=== PATIENT | female | born 1970 | race African-American/Black ===

== ENCOUNTER 2022-01-31 15:22 | Emergency (ER) | payer MEDICARE, MEDICAID ==
[~2022-01-31] VITALS: Ht 162.6 cm; Wt 122.7 kg
[~2022-01-31 15:22] MED LIST: CLONAZEP ODT1 MG PO; HYDROCHLOROT25 MG PO; LOSARTAN POTASS1 POW PO; METOPROL TAR25 M1 PO; SERTRALINE100 MG PO
[2022-01-31 18:24] VITALS: BP 122/57
== END 2022-01-31 18:24 | disposition home or self-care (01) ==
LOC: ED 15:22
DX: M25.562 Pain in left knee (principal); I10 Essential (primary) hypertension; F41.9 Anxiety disorder, unspecified

== ENCOUNTER 2022-02-12 17:13 | Emergency (ER) | payer MEDICARE, MEDICAID ==
[~2022-02-12] VITALS: Ht 162.6 cm; Wt 127.0 kg
[2022-02-12 19:00] VITALS: BP 125/72
== END 2022-02-12 19:40 | disposition home or self-care (01) ==
LOC: ED 17:13
DX: M25.562 Pain in left knee (principal); E66.9 Obesity, unspecified; I10 Essential (primary) hypertension; F41.9 Anxiety disorder, unspecified

== ENCOUNTER 2022-06-11 10:00 | Emergency (ER) | payer MEDICARE, MEDICAID ==
[~2022-06-11] VITALS: Ht 165.1 cm; Wt 132.0 kg
[~2022-06-11 10:00] MED LIST changes: +VITAMIN D31000 UNI1 PO; +XANAX1 MG PO
[2022-06-11 10:12] VITALS: BP 135/73
[2022-06-11 10:46] LABS: BASO% 0.7 % (0-3); EOS% 0.6 % (0-8); HEMATOCRIT 37.8 % (37.0-47.0); HEMOGLOBIN 12.1 g/dl (12.0-16.0); IMMATURE GRANULOCYTES 0.2 % (0.0-5.0); LYMPH% 23.1 % (15-41); MEAN CELL VOLUME 88.3 fL CALC (80.0-100.0); MEAN CORPUSCULAR HGB 28.3 pG CALC (26.0-32.0); MONO% 8.1 % (2-13); NEUT# 5.96 thou/uL (2.00-7.15); NEUT% 67.3 % (42-76); RED BLOOD COUNT 4.28 mill/uL (4.20-5.60); RED CELL DISTRI WIDTH 15.9 % (11.5-15.5)
[2022-06-11 10:57] LABS: ALBUMIN 3.8 g/dL (3.2-5.0); ALKALINE PHOSPHATASE 77 u/l (38-126); ANION GAP 8 (6-22 (CALC)); BUN 18 mg/dL (7-17); BUN/CREATININE RATIO 20 (12-20 (CALC)); CARBON DIOXIDE 28 mmol/l (22-30); CHLORIDE 108 mmol/l (95-108); CREATININE 0.9 mg/dL (0.5-1.0); GFR FOR AFR.AMER. > 60 ML/MIN (>=60 (CALC)); GFR OTHER RACES > 60 ML/MIN (>=60 (CALC)); POTASSIUM 3.8 mmol/l (3.5-5.1); SGOT/AST 38 u/l (14-36); SODIUM 140 mmol/l (137-146); TOTAL PROTEIN 7.2 g/dL (6.3-8.2)
[2022-06-11 11:01] VITALS: BP 132/61
[2022-06-11 11:11] LABS: BILIRUBIN, TOTAL 0.3 mg/dL (0.02-1.3)
[2022-06-11 11:28] LABS: TSH, 3RD GENERATION 2.36 uIU/mL (0.47 - 4.68)
[2022-06-11 11:46] VITALS: BP 132/61
[2022-06-11] MEDS ORDERED: PREDNISONE5 MG PO (15:28)
[2022-06-11] MEDS ORDERED: METHOTREXATE2.5 MG PO (15:29)
== END 2022-06-11 12:00 | disposition home or self-care (01) ==
LOC: ED 10:00
PROVIDERS: Family Medicine
DX: R00.2 Palpitations (principal); I10 Essential (primary) hypertension; F41.9 Anxiety disorder, unspecified; F32.A Depression, unspecified; M45.9 Ankylosing spondylitis of unspecified sites in spine; Z01.818 Encounter for other preprocedural examination; Z11.52 Encounter for screening for COVID-19; R19.5 Other fecal abnormalities

== ENCOUNTER 2022-06-12 07:33 | Day surgery (SDC) | payer MEDICARE, MEDICAID ==
[~2022-06-12] VITALS: Ht 165.1 cm; Wt 131.5 kg
[~2022-06-12 07:33] MED LIST changes: +METHOTREXATE2.5 MG PO; +PREDNISONE5 MG PO
[2022-06-12 10:12] VITALS: BP 115/65
== END 2022-06-12 10:11 | disposition home or self-care (01) ==
LOC: ENDO 07:33 → ORM 08:00 → ENDO 08:00
PROVIDERS: ATTEND Surgery
PROC: 0DBN8ZX Excision of Sigmoid Colon, Via Natural or Artificial Opening Endoscopic, Diagnostic (ICD-10-PCS; principal; 2022-06-12)
DX: K63.5 Polyp of colon (principal); K57.30 Diverticulosis of large intestine without perforation or abscess without bleeding; G47.33 Obstructive sleep apnea (adult) (pediatric); I10 Essential (primary) hypertension; E66.01 Morbid (severe) obesity due to excess calories

== ENCOUNTER 2022-07-22 18:03 | Emergency (ER) | payer MEDICARE, MEDICAID ==
[2022-07-22] VITALS (11 sets, daily range): BP systolic 116–149; BP diastolic 47–113
[~2022-07-22] VITALS: Ht 165.1 cm; Wt 127.2 kg
[2022-07-22 19:57] LABS: BASO% 0.7 % (0-3); EOS% 0.6 % (0-8); HEMATOCRIT 40.6 % (37.0-47.0); HEMOGLOBIN 12.8 g/dl (12.0-16.0); IMMATURE GRANULOCYTES 0.5 % (0.0-5.0); LYMPH% 13.2 % (15-41); MEAN CELL VOLUME 88.6 fL CALC (80.0-100.0); MEAN CORPUSCULAR HGB 27.9 pG CALC (26.0-32.0); MEAN CORPUSCULAR HGB CONC 31.5 g/dL CAL (32.0-36.0); MONO% 6.8 % (2-13); NEUT# 7.89 thou/uL (2.00-7.15); NEUT% 78.2 % (42-76); RED BLOOD COUNT 4.58 mill/uL (4.20-5.60); RED CELL DISTRI WIDTH 13.4 % (11.5-15.5)
[2022-07-22 20:13] LABS: ALBUMIN 4.1 g/dL (3.2-5.0); ALKALINE PHOSPHATASE 103 u/l (38-126); ANION GAP 8 (6-22 (CALC)); BILIRUBIN, TOTAL 0.3 mg/dL (0.02-1.3); BUN 11 mg/dL (7-17); BUN/CREATININE RATIO 12 (12-20 (CALC)); CARBON DIOXIDE 27 mmol/l (22-30); CHLORIDE 108 mmol/l (95-108); CREATININE 0.9 mg/dL (0.5-1.0); GFR FOR AFR.AMER. > 60 ML/MIN (>=60 (CALC)); GFR OTHER RACES > 60 ML/MIN (>=60 (CALC)); LIPASE 64 u/l (23-300); POTASSIUM 3.7 mmol/l (3.5-5.1); SGOT/AST 36 u/l (14-36); SODIUM 140 mmol/l (137-146); TOTAL PROTEIN 7.7 g/dL (6.3-8.2)
[2022-07-22] MEDS ORDERED: PEPCID40 MG PO (22:24)
== END 2022-07-22 22:45 | disposition home or self-care (01) ==
LOC: ED 18:03
PROVIDERS: Family Medicine
DX: K29.70 Gastritis, unspecified, without bleeding (principal); K80.20 Calculus of gallbladder without cholecystitis without obstruction; I10 Essential (primary) hypertension; F41.9 Anxiety disorder, unspecified
CPT/HCPCS: S0164

== ENCOUNTER 2023-11-22 15:24 | Emergency (ER) | payer MEDICARE ==
[~2023-11-22] VITALS: Ht 165.1 cm; Wt 118.0 kg
[~2023-11-22 15:24] MED LIST changes: +PEPCID40 MG PO
[2023-11-22 15:40] VITALS: BP 121/71
[2023-11-22 15:45] VITALS: BP 133/79
[2023-11-22 17:05] VITALS: BP 116/73
[2023-11-22] MEDS ORDERED: ORPHENADRINE CITRATE 30 MG/ML AMP IM ONE (17:10)
[2023-11-22] MEDS ORDERED: predniSONE 20 MG/TAB PO ONE (17:10)
[2023-11-22] MEDS ORDERED: PREDNISONE20 MG PO (17:14)
[2023-11-22] MEDS ORDERED: METHOCARBAMOL500 MG PO (17:14)
[2023-11-22 17:15] VITALS: BP 117/77
[2023-11-22 17:30] VITALS: BP 125/73
[2023-11-22 17:45] VITALS: BP 125/73
== END 2023-11-22 17:45 | disposition home or self-care (01) ==
LOC: ED 15:24
DX: M25.561 Pain in right knee (principal); M79.661 Pain in right lower leg; I10 Essential (primary) hypertension